=== PATIENT | female | born 1975 | race Caucasian/White ===

== ENCOUNTER 2018-10-20 06:25 | Emergency (ER) | payer BC ==
[2018-10-20] MEDS: LORAZEPAM 2 MG INJ IM (06:46)
== END 2018-10-20 09:18 | disposition home or self-care (01) ==
LOC: E/R 06:25
DX: F41.9 Anxiety disorder, unspecified (principal); R40.2142 Coma scale, eyes open, spontaneous, at arrival to emergency department; R40.2362 Coma scale, best motor response, obeys commands, at arrival to emergency department; R40.2252 Coma scale, best verbal response, oriented, at arrival to emergency department
CPT/HCPCS: 96372; 99284-25; J2060